=== PATIENT | female | born 2000 | race Caucasian/White ===

== ENCOUNTER 2025-03-23 01:15 | Emergency (ER) | payer SELFPAY ==
[~2025-03-23] VITALS: Ht 162.6 cm; Wt 53.5 kg
[2025-03-23] MEDS: ONDANSETRON ODT 4 MG TAB.RAPDIS SL ONE (02:13)
[2025-03-23] MEDS ORDERED: ONDANSETRON ODT 4 MG TAB.RAPDIS ONE (02:13)
[2025-03-23] MEDS ORDERED: KETOROLAC TROMETHAMINE 30 MG INJ ONE (02:13)
[2025-03-23] MEDS: KETOROLAC TROMETHAMINE 30 MG INJ IM ONE (02:21)
[2025-03-23] MEDS ORDERED: ONDA4TAB11 PO (02:34)
[2025-03-23] MEDS ORDERED: [UNRECOGNIZED DRUG - CODE] PO (02:34)
[2025-03-23] MEDS ORDERED: FLUT16SP16 BNOSTRILS (02:34)
[2025-03-23 02:47] VITALS: BP 128/74; TEMP 98.8; O2SAT 99
== END 2025-03-23 02:42 | disposition home or self-care (01) ==
LOC: ER 01:15
DX: J06.9 Acute upper respiratory infection, unspecified (principal); B97.89 Other viral agents as the cause of diseases classified elsewhere; R11.0 Nausea; Z90.49 Acquired absence of other specified parts of digestive tract
CPT/HCPCS: 99283; 96372; J1885; A4606; A4663; Q0162